=== PATIENT | male | born 1940 | race Caucasian/White ===

== ENCOUNTER 2024-11-14 16:00 | Emergency (ER) | payer MEDICARE, SELFPAY ==
--- NOTE | ~2024-11-14 | XR_ITS ---
CLINICAL HISTORY: acute onset R low back pain --- Additional Notes or Special Instructions: hx CA w mets 3 views lumbar spine Comparison: None provided Findings: Exaggeration of the lumbar lordosis. Grade 1 anterolisthesis at L3-L4 and L5-S1. Multilevel spondylosis with diffuse osteophytosis, facet arthropathy and degenerative disc disease. Osteopenia. Multilevel chronic appearing mild vertebral body endplate height loss. No acute fracture. IMPRESSION: Chronic changes without acute findings. This document has been electronically signed by: Miguel Woodard MD on 11/14/2024 18:28:33
[2024-11-14 16:24] VITALS: BP 150/102; BP 170/88; PULSE 58; PULSE 60; RESP 18; TEMP 36.6; O2SAT 97; O2SAT 99; BMI 25.4
--- NOTE | 2024-11-14 16:41 | ED_ITS ---
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 His machine operator hop picker, Roque, from [facility] is at bedside with patient. Hazel states that she received a phone call from patient's son/ HCP Demar. Demar received a call from [facility] stating that patient was endorsing acute onset right lower back pain and not he was being transferred to the ED for further evaluation. Roque tells me that patient is typically alert and oriented to self/ situation, has difficulty with word finding due to his aphasia however is able to answer questions. Roque presents with MOLST form indicating that patient is a DNI. Patient tells me that he was walking to a music class today when he felt a sudden pain to his right lower back. States ?it took my breath away?. He was able to continue walking. Denies any pain radiation down his legs. Denies numbness/tingling/weakness of the lower extremities. He typically ambulates independently without any assistive devices. Denies any history of spinal surgery or IV drug use. Denies any urinary symptoms such as dysuria, hematuria. Denies any blunt injury or trauma. Denies falls. Of note, patient is currently being treated for stage III prostate cancer. Has weekly injections. Related Data Allergies Allergy/AdvReac Type Severity Reaction Status Date / Time No Known Allergies Allergy Verified 11/14/24 16:27 Review of Systems 2 Review of Systems: Yes all other systems are reviewed and are negative PMFSH Past Medical History Attestation statement: The following information was validated with the patient. Source: old records reviewed and nursing notes reviewed Physical Exam ED Vital Signs: Vital Signs - 24 hr 11/14/24 16:24 11/14/24 19:56 Temperature 97.9 F 97.1 F Pulse Rate 58 61 Respiratory Rate 18 18 Blood Pressure 150/102 H 143/77 H Pulse Oximetry 99 97 Oxygen Delivery Method Room Air Room Air BMI result Body Mass Index 25.4 hypertensive, vitals are otherwise wnl. General: well appearing, in no acute distress. Skin: Warm, dry, intact. No rashes or lesions. Head: Normocephalic, atraumatic. EENT: Hearing is intact b/l. Conjunctiva clear. Sclera is anicteric. PERRLA. EOM intact. Moist mucous membranes.? Neck: Supple without LAD Cardiac: Chest wall symmetric. RRR Lungs: Normal respiratory effort without accessory muscle use. CTA bilaterally. Abdomen: Soft, non-tender, non-distended. No rebound tenderness or guarding. Positive BS x4. No CVAT. Back: No midline spinous tenderness or step-off deformity. There is reproducible tenderness to palpation over right paraspinal lumbar musculature without palpable deformity. No overlying skin changes. Ext: Upper and lower extremities atraumatic, without tenderness, deformity, swelling or erythema. Full ROM throughout. Strength 5/5 throughout. Capillary refill <2 seconds in all extremities. Pulses 2+ equal and bilateral. Neuro: AOx3. Normal speech. Strength 4/5 intact throughout. No saddle anesthesia. Sensation intact to light touch. NV intact distally. Course Course Course Narrative: 1700 -- x-ray lumbar spine showing chronic degenerative changes, no acute compression fracture. > UA, labs pending > patient medicated with Tylenol and lidocaine patch > patient is stable at the end of my shift, sign-out given to Roxi SANDHU pending above/ disposition PHOEBE Hamilton-C [id number] ---> Patient's work up was negative for any acute process. Patient cleared for discharge. 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 Hypertensive, vitals otherwise WNL. He is well-appearing, alert and oriented. There is no midline spinous tenderness or step-off deformity. There is reproducible tenderness to palpation of right lumbar paraspinal musculature. No overlying skin changes or deformity. Sensation intact to light touch throughout. Neurovascularly intact distally. Differential diagnosis includes muscle spasm, lumbar strain/sprain, arthritis, compression fracture, UTI, renal colic, nephrolithiasis Unlikely cauda equina, Guillain-[place], epidural abscess, cord compression Plan for basic labs, UA, lumbar xr, and pain control. Differential Diagnosis Differential Diagnoses: The differential diagnosis associated with the presentation includes as above. Admission/Observation Not indicated Lab Data [facility] Lab Attestation statement: I reviewed the patient's lab results. as above. 11/14/24 19:20 11/14/24 19:20 Labs: Lab Results 11/14/24 11/14/24 Range/Units 19:20 21:32 WBC 7.7 (4.8-10.8) X10*3/uL RBC 3.98 L (4.60-5.80) X10*6/uL Hgb 12.7 L (14.0-18.0) g/dl Hct 36.7 L (42.0-52.0) % MCV 92.2 (80.0-98.0) fL MCH 31.9 (27.0-33.0) pg MCHC 34.6 (31.0-36.0) g/dl RDW 13.8 (11.0-16.0) % Plt Count 199 (160-400) X10*3/uL MPV 10.7 (9.4-12.4) fL Immature Gran % (Auto) 0.3 (0.0-0.4) % Neut % (Auto) 58.4 (45-73) % Lymph % (Auto) 23.8 (20-40) % [place] % (Auto) 7.8 (2-11) % Eos % (Auto) 8.7 H (0-4) % Baso % (Auto) 1.0 (0-2) % Lymph # (Auto) 1.8 (1.2-4.9) X10*3/uL [place] # (Auto) 0.6 (0.1-1.2) X10*3/uL Eos # (Auto) 0.7 H (0.0-0.4) X10*3/uL Baso # (Auto) 0.1 (0.0-0.2) X10*3/uL Abs Immat Gran (auto) 0.02 (0.00-0.03) X10*3/uL Absolute Neuts (auto) 4.5 (2.0-8.3) x10*3/uL Absolute Nucleated RBC 0.000 (0.0-0.012) X10*3/uL Nucleated RBC % (auto) 0.0 (0.0-0.2) /100WBC Sodium 142 (135-145) mmol/L Potassium 4.0 (3.3-5.1) mmol/L Chloride 110 H (96-108) mmol/L Carbon Dioxide 25 (22-29) mmol/L Anion Gap 11 L (12-20) BUN 24 H (9-16) mg/dL Creatinine 0.94 (0.5-1.4) mg/dL Estim Creat Clear Calc 60.5 Estimated GFR > 60 Random Glucose 102 (60-115) mg/dL Calcium 9.6 (8.4-10.2) mg/dL Magnesium 2.2 (1.6-2.6) mg/dL Total Bilirubin 0.5 (0.0-1.0) mg/dL AST 33 (5-37) U/L ALT 26 (0-40) U/L Alkaline Phosphatase 85 (39-117) U/L Total Protein 7.2 (6.5-8.0) g/dL Albumin 4.5 (3.5-5.0) g/dL Urine Color Yellow Urine Appearance Clear Urine pH 6.0 (5.0-9.0) Ur Specific [place] 1.015 (1.005-1.025) Urine Protein Negative (Neg-Trace) mg/dL Urine Glucose (UA) Negative (Negative) mg/dL Urine Ketones Negative (Negative) mg/dL Urine Blood Negative (Negative) Urine Nitrite Negative (Negative) Ur Leukocyte Esterase Negative (Negative) Independent Interpretation I performed an independent interpretation of an: Plain X-Ray Interpretation: xr lumbar spine without acute fracture Radiology Impression Discussion of test interpretation with radiology: I have reviewed the radiologist's reading. Radiologist Impression: Date of Service: 11/14/24 Procedure(s): XR lumbar spine 2-3V Accession Number(s): [id number] cc: Daphney Gibson MD; Sapphire Adams~ CLINICAL HISTORY: acute onset R low back pain --- Additional Notes or Special Instructions: hx CA w mets 3 views lumbar spine Comparison: None provided Findings: Exaggeration of the lumbar lordosis. Grade 1 anterolisthesis at L3-L4 and L5-S1. Multilevel spondylosis with diffuse osteophytosis, facet arthropathy and degenerative disc disease. Osteopenia. Multilevel chronic appearing mild vertebral body endplate height loss. No acute fracture. IMPRESSION: Chronic changes without acute findings. This document has been electronically signed by: Miguel Woodard MD on 11/14/2024 18:28:33 Independent Historian Clinical information obtained from an independent historian. History obtained from or confirmed by: EMS and Other (personal care aide, roque) External Record Review External record reviewed: Outpatient record Prescription Management I considered prescription management with: Pain Medication Social Determinants Patient?s care significantly limited by Social Determinants of Health including: Other Social Determinant of Health Critical Care Time Critical Care Time Critical Care Time: No Discharge Plan Discharge Clinical Impression: Acute lumbar back pain Patient Disposition: Home, Self-Care Instructions: Acute Low Back Pain (ED) Additional Instructions: Follow up with your primary care provider. Return to the emergency department immediately if your symptoms worsen or if you develop any numbness, tingling, dizziness, shortness of breath, difficulty breathing, chest pain, blurry vision, loss of vision, nausea, vomiting, abdominal pain, fever, chills, back pain, or any other complaints. Please see the information below about our Patient Portal. If you are not yet enrolled in the [facility] Patient Portal, you will receive an enrollment email invitation following your visit to any [facility] setting. You may also self-enroll in the Patient Portal by visiting our website: [email or web address] The following information is required to access the Patient Portal: - Your [facility] Medical Record Number - Your personal home email address (must match what is in your electronic medical record, Registration staff can assist with this) - Name - Date of Capabilities of the Patient Portal: - Message some providers - View upcoming appointments - Access your health summary, medical history, and visit history - View current conditions and allergies - View procedure and lab results - View your medications, including guidelines, side effects, and precautions - Complete pre-appointment questionnaires requested by your provider - Ready summary reports of your office visits and procedures To access the Patient Portal Mobile Jon, follow these directions: - Search [employer] in the Jon Store or [employer] Store - Download the Jon - Search for [facility] - Enter your login/password Referrals: Daphney Gibson MD [Primary Care Provider, Medical] Interventions: ED Discharge Assessment Last Done: 11/14/24 21:49 Discharge Date/Time: 11/15/24 00:03 Print Language: Macedonian
[2024-11-14] MEDS: Acetaminophen 325 MG TABLET 975 MG PO (18:35)
[2024-11-14] MEDS: Lidocaine 4 % Patch ADH..PATCH 1 PATCH TRANSDERMA (18:36)
[2024-11-14 19:35] LABS: MANUAL DIFF FLAG NO
[2024-11-14 19:38] LABS: Basophils Absolute Auto 0.1 X10*3/uL (0.0-0.2); Eosinophils Absolute Auto 0.7 X10*3/uL (0.0-0.4); Eosinophils Percent Auto 8.7 % (0-4); Hematocrit 36.7 % (42.0-52.0); Hemoglobin 12.7 g/dl (14.0-18.0); Imm Gran Abs Auto 0.02 X10*3/uL (0.00-0.03); Imm Gran Pct Auto 0.3 % (0.0-0.4); Lymphocytes Absolute Auto 1.8 X10*3/uL (1.2-4.9); Lymphocytes Percent Auto 23.8 % (20-40); Mean Corpuscular HGB Conc 34.6 g/dl (31.0-36.0); Mean Corpuscular Hemoglobin 31.9 pg (27.0-33.0); Mean Corpuscular Volume 92.2 fL (80.0-98.0); Mean Platelet Volume 10.7 fL (9.4-12.4); Monocytes Absolute Auto 0.6 X10*3/uL (0.1-1.2); Monocytes Percent Auto 7.8 % (2-11); Neutrophils Absolute Auto 4.5 x10*3/uL (2.0-8.3); Neutrophils Percent Auto 58.4 % (45-73); Platelet Count 199 X10*3/uL (160-400); Red Blood Count 3.98 X10*6/uL (4.60-5.80); Red Cell Distribution Width 13.8 % (11.0-16.0); White Blood Count 7.7 X10*3/uL (4.8-10.8)
[2024-11-14 19:52] LABS: Alanine Aminotransferase 26 U/L (0-40); Albumin Level 4.5 g/dL (3.5-5.0); Alkaline Phosphatase 85 U/L (39-117); Anion Gap 11 (12-20); Aspartate Amino Transferase 33 U/L (5-37); Bilirubin Total 0.5 mg/dL (0.0-1.0); Blood Urea Nitrogen 24 mg/dL (9-16); Calcium 9.6 mg/dL (8.4-10.2); Carbon Dioxide 25 mmol/L (22-29); Chloride 110 mmol/L (96-108); Creatinine Clr Calc Pharmacy 60.5; Estimated Glomerular Filt Rate > 60; Glucose Random 102 mg/dL (60-115); Magnesium 2.2 mg/dL (1.6-2.6); Sodium 142 mmol/L (135-145); Total Protein 7.2 g/dL (6.5-8.0)
[2024-11-14 19:56] VITALS: BP 143/77; PULSE 61; RESP 18; TEMP 36.2; O2SAT 97
[2024-11-14 21:41] LABS: Appearance Urine Clear; Color Urine Yellow; Glucose Urine UA Negative (Negative); Leukocyte Esterase Urine Negative (Negative); Nitrite Urine Negative (Negative); Specific Gravity - Urine 1.015 (1.005-1.025); Urine Blood Negative (Negative); Urine Ketones Negative (Negative); Urine Protein Negative (Neg-Trace)
[2024-11-14 21:49] VITALS: BP 143/77; PULSE 61; RESP 18; TEMP 36.2; O2SAT 97
[2024-11-14 22:34] VITALS: BP 186/88; PULSE 71; RESP 16; TEMP 36.7; O2SAT 96
--- NOTE | 2024-11-14 23:34 | PC.NURSE ---
report received and care assumed. The pt was noted to be attempting to bed exit while RN receiving report. EDT noted that the pt had been incontinent. RN and EDT assisted with bed change and aimee care. Pt reports continued pain to the right lower back without radiation. He is otherwise well appearing and without distress noted at this time. He is pending EMS sweet pickle maker at this time. RN to attempt to outreach receiving facility for report
--- NOTE | 2024-11-14 23:42 | MHC.MBSS ---
nurse to nurse report provided to Senait from [facility]
== END 2024-11-15 00:03 | disposition home or self-care (01) ==
PROVIDERS: Physician Assistant Medical; Emergency Provider Emergency Medicine Emergency Medical Services; PCP Internal Medicine
DX: M54.50 Low back pain, unspecified (principal); R47.01 Aphasia; C61 Malignant neoplasm of prostate; C77.5 Secondary and unspecified malignant neoplasm of intrapelvic lymph nodes; C77.8 Secondary and unspecified malignant neoplasm of lymph nodes of multiple regions; C79.51 Secondary malignant neoplasm of bone
CPT/HCPCS: 36415; 72100; 80053; 81003; 83735; 85025; 99283; 99284

== ENCOUNTER → 2024-11-14 17:02 | Outpatient (BNV) | payer MEDICARE, SELFPAY | PROVIDERS: Emergency Provider Emergency Medicine Emergency Medical Services; PCP Internal Medicine; Visit Provider Radiology Diagnostic Radiology | DX: M43.16 Spondylolisthesis, lumbar region (principal) | CPT/HCPCS: 72100 ==